=== PATIENT | male | born 1950 | race Caucasian/White ===

== ENCOUNTER 2020-12-25 12:19 | Inpatient (IN) | payer MEDICARE, OTHER ==
[~2020-12-25] VITALS: Ht 182.9 cm; Wt 99.8 kg
[2020-12-25] MEDS ORDERED: SODIUM CHLORIDE 0.9% 1,000 ML IV ONE (12:30)
[2020-12-25 13:25] LABS: Basophils # (auto) 0.1 10 ^3/uL (0-0.2); Basophils % (auto) 0.6 % (0.0-2.0); Eosinophils # (auto) 0.1 10 ^3/uL (0-0.8); Eosinophils % (auto) 0.6 % (0.0-7.0); Hemoglobin 16.2 g/dL (13.5-17.5); Lymphocytes # (auto) 0.2 10 ^3/uL (0.4-5.4); Lymphocytes % (auto) 2.5 % (10.0-50.0); Mean Corpuscular Hemoglobin 32.8 pg (28.0-32.0); Mean Corpuscular Hgb Conc. 35.2 g/dL (32.0-36.0); Mean Corpuscular Volume 93.2 fL (80.0-100.0); Monocytes # (auto) 0.5 10 ^3/uL (0-1.3); Monocytes % (auto) 5.5 % (0.0-12.0); Neutrophils # (auto) 8.2 10 ^3/uL (1.6-8.6); Neutrophils % (auto) 90.8 % (37.0-80.0); Platelet Count (auto) 158 10^3/uL (140-450); Red Blood Cells 4.93 10^6/uL (4.5-5.90); White Blood Cell 9.1 10^3/uL (4.4-10.8)
[2020-12-25 13:44] LABS: Albumin 3.6 g/dL (3.4-5.0); Anion Gap 8 (5-15); Blood Urea Nitrogen 17 mg/dL (7-18); Calcium 9.2 mg/dL (8.5-10.1); Carbon Dioxide 25 mmol/L (21-32); Chloride 100 mmol/L (98-107); Glucose 285 mg/dL (74-106); INR 1.05 (0.9-1.15); Partial Thromboplastin Time 25.4 sec (23.0-31.2); Potassium 4.1 mmol/L (3.5-5.1); Sodium 133 mmol/L (136-145)
[2020-12-25 13:50] LABS: Alanine Aminotransferase 22 U/L (16-61); Alkaline Phosphatase 83 U/L (45-117); Aspartate Aminotransferase 13 U/L (15-37); BUN/Creatinine Ratio 17.3; Bilirubin, Total 2.1 mg/dL (0.2-1.0); GFR African American 97 mL/min; GFR Non-African American 80 mL/min; Total Protein 7.4 g/dL (6.4-8.2)
[2020-12-25] MEDS ORDERED: ENOXAPARIN SOD 40 MG/0.4 ML SYRINGE SC ONE (14:00)
[2020-12-25] MEDS ORDERED: cefTRIAXone 1GM/50ML D5W 50 ML IV ONE (14:00)
[2020-12-25] MEDS ORDERED: LACTATED RINGER'S 1,000 ML IV ONE (14:00)
[2020-12-25] MEDS ORDERED: NITROGLYCERIN 0.4 MG SL TAB SL PRN ×2 (14:00→14:30)
[2020-12-25] MEDS ORDERED: ASPirin 81 mg TAB PO ONE (14:00)
[2020-12-25] MEDS ORDERED: MORPHINE SULF INJ 2 MG/ML SYRINGE 1ML IV PRN ×3 (14:00→14:30)
[2020-12-25] MEDS ORDERED: ATORVASTATIN 20 MG TAB PO ONE (14:00)
[2020-12-25] MEDS ORDERED: CLOPIDOGREL BISULFATE 75 MG TAB PO ONE (14:15)
[2020-12-25] MEDS ORDERED: ONDANSETRON HCL 4 MG/2 ML VIAL IV PRN (14:30)
[2020-12-25] MEDS ORDERED: DOCUSATE SOD 100 MG CAP PO PRN (14:30)
[2020-12-25] MEDS ORDERED: DEXTROSE (50%) 50ML SYRG IV PRN (14:30)
[2020-12-25] MEDS ORDERED: ALUM & MAG HYDROX-SIMETH LIQ(MAALOX) 30 ML PO PRN (14:30)
[2020-12-25] MEDS ORDERED: METOPROLOL SUCCINATE XL 50 MG TAB PO ONE (14:30)
[2020-12-25] MEDS ORDERED: ACETAMINOPHEN 325 MG TAB PO PRN (14:30)
[2020-12-25] MEDS ORDERED: HYDROcodone-ACET 5/325MG TAB PO PRN (14:30)
[2020-12-25] MEDS ORDERED: LORazepam 0.5 MG TAB PO PRN (14:30)
[2020-12-25] MEDS ORDERED: AZITHROMYCIN 500MG/ 250ML 250 ML IV ONE (15:00)
[2020-12-25] MEDS ORDERED: METF-929 PO (16:31)
[2020-12-25] MEDS ORDERED: LISI-275 PO (16:31)
[2020-12-25] MEDS ORDERED: AMLO-496 PO (16:31)
[2020-12-25] MEDS ORDERED: ASPI-498 PO (16:31)
[2020-12-25] MEDS ORDERED: CARV25TA55 PO (16:31)
[2020-12-25] MEDS ORDERED: ATOR40TA52 PO (16:31)
[2020-12-25] MEDS: ACCU-CHEK COMFORT CURVE STRIP VI SCH ×2 (16:55→22:00)
[2020-12-25] MEDS: InsuLIN REG 1unit/0.01ml Soln (100units/ml) SC SCH ×2 (16:56→22:00)
[2020-12-25] MEDS: SODIUM CHLORIDE 0.9% 1,000 ML IV SCH (18:28)
[2020-12-25 18:49] LABS: Cholesterol 136 mg/dL (< 200); HDL Cholesterol 31 mg/dL (40-59); LDL Cholesterol 94 mg/dL (< 100); Triglycerides 164 mg/dL (< 150)
[2020-12-25] MEDS ORDERED: LORazepam 2MG/ML-1ML VIAL IV PRN (20:30)
[2020-12-25] MEDS ORDERED: ATORVASTATIN 20 MG TAB PO SCH (22:00)
[2020-12-25] MEDS: CLINDAMYCIN 600MG IV 50 ML IV SCH (22:29)
[2020-12-26] MEDS: CLINDAMYCIN 600MG IV 50 ML IV SCH ×2 (06:00→13:26)
[2020-12-26] MEDS: SODIUM CHLORIDE 0.9% 1,000 ML IV SCH (06:00)
[2020-12-26] MEDS: InsuLIN REG 1unit/0.01ml Soln (100units/ml) SC SCH ×2 (06:36→11:38)
[2020-12-26] MEDS: ACCU-CHEK COMFORT CURVE STRIP VI SCH ×2 (06:36→11:38)
[2020-12-26] MEDS ORDERED: cefTRIAXone 1GM/50ML D5W 50 ML IV SCH (09:00)
[2020-12-26 09:13] VITALS: BP 152/86
[2020-12-26] MEDS ORDERED: AZITHROMYCIN 500MG/ 250ML 250 ML IV SCH (10:00)
[2020-12-26] MEDS ORDERED: ASPirin 81 mg TAB PO SCH (10:00)
[2020-12-26] MEDS ORDERED: ENOXAPARIN SOD 40 MG/0.4 ML SYRINGE SC SCH (10:00)
[2020-12-26] MEDS ORDERED: LISINOPRIL 5 MG TAB PO SCH (10:00)
[2020-12-26] MEDS ORDERED: METOPROLOL SUCCINATE XL 50 MG TAB PO SCH (10:00)
[2020-12-26 13:00] VITALS: BP 134/83
[2020-12-26 14:55] VITALS: BP 134/83
== END 2020-12-26 15:50 | disposition home or self-care (01) | DRG 866 ==
LOC: ER 12:19 → EDBD 12:19 → TELE 12:20 → TELE-WESTW 12-26 08:10
PROVIDERS: ADMIT Hospitalist; ATTEND Hospitalist
DX: T88.1XXA Other complications following immunization, not elsewhere classified, initial encounter (principal); E87.1 Hypo-osmolality and hyponatremia; J98.11 Atelectasis; E11.9 Type 2 diabetes mellitus without complications; E66.9 Obesity, unspecified; E78.5 Hyperlipidemia, unspecified; F02.80 Dementia in other diseases classified elsewhere, unspecified severity, without behavioral disturbance, psychotic disturbance, mood disturbance, and anxiety; F17.200 Nicotine dependence, unspecified, uncomplicated; G30.9 Alzheimer's disease, unspecified; H02.401 Unspecified ptosis of right eyelid; I10 Essential (primary) hypertension; Y83.8 Other surgical procedures as the cause of abnormal reaction of the patient, or of later complication, without mention of misadventure at the time of the procedure; I25.10 Atherosclerotic heart disease of native coronary artery without angina pectoris; Z20.822 Contact with and (suspected) exposure to COVID-19; Z68.29 Body mass index [BMI] 29.0-29.9, adult; Y92.89 Other specified places as the place of occurrence of the external cause; I25.2 Old myocardial infarction; Z79.4 Long term (current) use of insulin; Z79.82 Long term (current) use of aspirin; Z79.899 Other long term (current) drug therapy; Z80.0 Family history of malignant neoplasm of digestive organs; Z98.61 Coronary angioplasty status
CPT/HCPCS: 36415; 70450; 70551; 71045; 80053; 80061; 82962; 83036; 83880; 84484; 85025; 85610; 85730; 87040; 87426; 93005; 93306; 93886; 96360; G0378; J0696; J1815; J3490

== ENCOUNTER 2025-06-14 23:36 | Emergency (ER) | payer MEDICARE ==
[~2025-06-14] VITALS: Ht 182.9 cm; Wt 97.5 kg
[~2025-06-14 23:36] MED LIST: AMLO1TAB23 PO; ASPI-498 PO; ATOR40TA52 PO; CARV25TA55 PO; LISI-275 PO; METF-929 PO
--- NOTE | 2025-06-14 23:59 | ED.PDOC ---
Daniel. trauma (HPI) HPI Comments 74-YEAR-OLD MALE PRESENTS TO THE ED WITH SPOUSE PER PATIENT HE WAS TRYING TO EXIT HIS BED, SLIPPED ONTO THE FLOOR, HITTING HIS RIGHT HEAD ON A NIGHT STAND. PATIENT HAS AN APPROXIMATE 3 INCH LACERATION, AND AN APPROXIMATE 1CM LACERATION TO THE RIGHT SIDE OF HIS HEAD. DENIES LOC, NUMBNESS, WEAKNESS, CHEST PAIN, SHORTNESS BREATH, DIFFICULTY BREATHING, ABDOMINAL PAIN, BACK PAIN PAIN, SLURRED SPEECH, BLURRED VISION, OR NAUSEA AND VOMITING. Chief Complaint: Head Injury Time Seen by MD: 23:49 Primary Care Provider: PINAK Reviewed notes: Nurses Notes, Medications, Allergies Allergies: Coded Allergies: NO KNOWN ALLERGIES (Unverified , 12/25/20) Home Meds Reported Medications Atorvastatin Calcium (ATORVASTATIN CALCIUM) 40 Mg Tab, 1 TAB PO HS 12/25/20 Lisinopril (Lisinopril) 5 Mg Tab, 5 MG PO DAILY 12/25/20 Aspirin (ASPIRIN 81) 81 Mg Tab, 81 MG PO DAILY 12/25/20 Amlodipine Besylate (Amlodipine Besylate) 10 Mg Tab, 1 TAB PO DAILY 12/25/20 Carvedilol (Carvedilol) 25 Mg Tab, 25 MG PO BID 12/25/20 Metformin HCl (Metformin Hydrochloride) 1,000 Mg Tab, 1000 MG PO BID 12/25/20 Information Source: Patient, Spouse Mode of Arrival: Ambulatory Past Medical History PAST MEDICAL HISTORY: CAD, DM, HTN Surgical History: Denies all surgeries Social History Smoker: Non-Smoker Alcohol: Denies ETOH Use Drugs: Denies Drug Use All Other Systems: Reviewed and Negative (SEE HPI) Physical Exam General Appearance: No Apparent Distress, Normal HEENT: Normal ENT Inspection, Pharynx Normal, TMs Normal Neck: Limited Range of Motion, Tender Lateral Respiratory: Chest Non-Tender, Lungs Clear, No Respiratory Distress, Normal Breath Sounds Cardiovascular: No Edema, No JVD, No Murmur, No Gallop, Normal Peripheral Pulses, Regular Rate/Rhythm Breast Exam: Deferred Gastrointestinal: No Organomegaly, Non Tender, No Pulsatile Mass, Normal Bowel Sounds, Soft Genitalia: Deferred Pelvic: Deferred Rectal: Deferred Extremities: Normal capillary refill, Normal range of motion, No pedal edema Musculoskeletal : Apperance: Normal Neurologic: Alert, No Motor Deficits, Normal Affect, Normal Mood, No Sensory Deficits Cerebellar Function: Normal Reflexes: Normal Skin: Dry, Lacerations (APPROXIMATE 3 IN LACERATION TO TOP OF HEAD OBVIOUS FOREIGN BODY BLEEDING CONTROLLED. APPROXIMATE 1 CM LACERATION/PUNCTURE WOUND TO RIGHT ZOROASTRIANISM NO OBVIOUS FOREIGN BODY BLEEDING CONTROLLED.), Normal Color, Warm Lymphatic: No Adenopathy Was a procedure done? Was a procedure done?: Yes Sedation Sedation?: No Informed consent obtained: Yes Laceration Repair #1: Location TOP OF SCALP Length 3.5 CM Anesthetic: LET Laceration Repair Prep: Saline, by Irrigation Laceration Repair Wound Comple: epidermis/dermis repair Laceration Repair: Dasha ([id number]), Non-adherent gauze, Gauze Informed consent obtained: Yes Risks, benefits, and alternati: Yes Notes PATIENT TOLERATED WELL WITH MINIMAL PAIN MINIMAL BLEEDING Laceration Repair #2: Location RIGHT TEMPORAL AREA Length 1.5 CM Anesthetic: LET Laceration Repair Prep: Saline, by Irrigation Laceration Repair Wound Comple: epidermis/dermis repair Laceration Repair: [place] (2) Informed consent obtained: Yes Risks, benefits, and alternati: Yes Differential Diagnosis Multiple Trauma: Closed Head Injury, Fractures, Spine Injury, Foreign Body, Hematoma, Laceration Neck Injury: Cervical Fracture X-Ray, Labs, Meds, VS Vital Signs Date Time Temp Pulse Resp B/P (MAP) Pulse Ox O2 Delivery O2 Flow Rate FiO2 06/15/25 02:14 56 18 98 Room Air 06/15/25 02:14 97.8 56 18 142/80 (100) 98 97.8 06/14/25 23:36 98.0 87 18 161/87 97 98.0 Current Medications Medications (Trade) Dose Ordered Sig/Rosario Route Start Time Stop Time Status Last Admin Tetracaine/ Epinephrine/ Lidocaine 5 ml ONCE ONCE TOP 06/15/25 00:00 06/15/25 00:01 DC 06/15/25 00:49 Tetracaine/ Epinephrine/ Lidocaine 5 ml ONCE ONCE TOP 06/15/25 00:45 06/15/25 00:46 DC 06/15/25 00:49 Acetaminophen/ Hydrocodone Bitart ([place] 5/325MG Tab) 1 tab ONCE ONCE PO 06/15/25 02:00 06/15/25 02:01 DC 06/15/25 02:13 X-Ray, Labs, Meds, VS Comment SEE PROCEDURE NOTE. CT HEAD AND NECK PENDING RESULTS personal radiology computer system is down [place] wide. Results read by this provider CT head no noted gross bleed, CT cervical spine no noted gross subluxation or fracture. Advised patient to wait for official read and impression from the radiologist.. Advised patient of risks such as head bleed possible coma . Patient refused signed out AMA. Images Reviewed?: Images reviewed and evaluated by me Time of 1ST Reevaluation: 23:55 Reevaluation 1ST: Unchanged Time of 2ND Reevaluation: 02:38 Reevaluation 2ND: Improved Patient Education/Counseling: Diagnosis, Treatment, Prognosis, Need For Follow Up Family Education/Counseling: Diagnosis, Treatment, Prognosis, Need For Follow Up Departure 1 Departure Time of Disposition: 03:11 Impression: Primary Impression: Traumatic head injury with multiple lacerations Qualified Codes: S09.90XA - Unspecified injury of head, initial encounter; S01.91XA - Laceration without foreign body of unspecified part of head, in itial encounter Disposition: 07 LEFT AGAINST MEDICAL ADVICE Condition: Stable Discharged With: Spouse Critical Care Note Critical Care Time?: No Stability Stability form required: DORITA Beckford DIAB[employer]ES CLINICAL MANAGER Jun 14, 2025 23:59
[2025-06-15] MEDS: LET TOPICAL SOLN 5 ML TOP ONE ×2 (00:49)
[2025-06-15] MEDS: HYDROcodone-ACET 5/325MG TAB PO ONE (02:13)
[2025-06-15 02:14] VITALS: BP 142/80; PULSE 56; RESP 18; TEMP 97.8; O2SAT 98
--- NOTE | 2025-06-15 04:12 | DVH ---
EXAM: CT HEAD WITHOUT CONTRAST INDICATION: STATUS POST FALL HEAD INJURY TECHNIQUE: CT of the head without intravenous contrast. Radiation Dose : 1. Head: CT Dose: CTDI volume is 61.08 mGy. Dose-length product is 1203.49 mGy*cm The dose indicators for CT are the volume Computed Tomography (CT) Dose Index (CTDIvol) and the Dose Length Product (DLP), and are measured in units of mGy and mGy-cm, respectively. These indicators are not patient dose, but values generated from the CT scanner acquisition factors. The report includes radiation exposure data for exposures received during this examination. COMPARISON: BRAIN HEAD WO CONTRAST on DOS: 12/26/20, HEAD WITHOUT CONTRAST on DOS: 12/25/20 FINDINGS: There is no evidence of acute intracranial hemorrhage, extra-axial collection, mass effect, midline s hift, herniation or hydrocephalus. Chronic appearing lacunar infarct within the right external capsule. Increased prominence of the ventricles, sulci and cisterns consistent with the sequelae of atrophic c ortical volume loss. The sanchez-white differentiation is intact. Moderate diffuse confluent periventricular and subcortical white matter hypoattenuation is nonspecifi c but may be related to small vessel ischemic disease. Bilateral maxillary and ethmoid mucosal sinus disease, [id number]. The remaining visual ized paranasal sinuses and mastoid air cells are clear. Moderate superior right parietal scalp soft tissue swelling. The surrounding soft tissues and osseous structures are otherwise unremarkable. IMPRESSION: 1. No acute intracranial abnormality. 2. Chronic sequelae of microvascular disease, right external capsule lacunar infarct and atrophic cor tical volume loss. 3. Moderate superior right parietal scalp soft tissue swelling. Radiation optimization: All CT scans at this facility use at least one of these dose optimization olena hniques: automated exposure control mA and/or kV adjustment per patient size (includes targeted exam s where dose is matched to clinical indication) or iterative reconstruction.
--- NOTE | 2025-06-15 04:30 | DVH ---
EXAM: CT CERVICAL WITHOUT CONTRAST HISTORY: STATUS POST FALL NECK INJURY/PAIN COMPARISON: BRAIN HEAD WO CONTRAST on DOS: 12/26/20, HEAD WITHOUT CONTRAST on DOS: 12/25/20 CTDIvol 23.81 mGy, DLP 636.92 mGy*cm. TECHNIQUE: Multiple axial CT images of the spine were obtained using bone algorithm. Axial and coron al reformatting was done. Bone and soft tissue windows were reviewed. FINDINGS: Slight reversal of normal cervicallordosis. No CT evidence of definite acute fracture, spinal dislocation, or significant appearing acute subluxa tion is seen. The visualized paraspinal soft tissues are grossly unremarkable. Moderate to severe multilevel degenerative change includes multilevel disc height loss with adjacent endplate sclerosis anterior osteophytosis and bridging anterior osteophytes suggestive of sequelae of diffuse idiopathic skeletal hyperostosis. Moderate to severe multilevel bilateral facet hypertrophy. Atherosclerotic vascular calcifications. IMPRESSION: 1. 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
== END 2025-06-15 03:08 | disposition left against medical advice (07) ==
LOC: ER 23:36
DX: S01.01XA Laceration without foreign body of scalp, initial encounter (principal); S01.81XA Laceration without foreign body of other part of head, initial encounter; S09.90XA Unspecified injury of head, initial encounter; I25.10 Atherosclerotic heart disease of native coronary artery without angina pectoris; E11.9 Type 2 diabetes mellitus without complications; I10 Essential (primary) hypertension; Z79.899 Other long term (current) drug therapy; W06.XXXA Fall from bed, initial encounter; Y93.89 Activity, other specified; Y92.89 Other specified places as the place of occurrence of the external cause; Y99.8 Other external cause status
CPT/HCPCS: 12001; 12002; 70450; 72125